=== PATIENT | male | born 1950 | race Caucasian/White ===

== ENCOUNTER → 2021-03-07 | Outpatient (CLI) | payer OTHER | END | disposition home or self-care (01) | LOC: OIH 12:41 | PROVIDERS: ATTEND Family Medicine | DX: Z13.6 Encounter for screening for cardiovascular disorders (principal); Z82.49 Family history of ischemic heart disease and other diseases of the circulatory system | CPT/HCPCS: 75571 ==

== ENCOUNTER → 2023-10-11 | Outpatient (CLI) | payer MEDICARE, OTHER ==
[~2023-10-11] MED LIST: GADOTERATE MEGLUMINE 10 MMOL/20 ML VIAL IV ONE
== END | disposition home or self-care (01) ==
LOC: RAH 15:09
PROVIDERS: ATTEND Family Medicine
DX: S83.242A Other tear of medial meniscus, current injury, left knee, initial encounter (principal); S83.282A Other tear of lateral meniscus, current injury, left knee, initial encounter; M71.22 Synovial cyst of popliteal space [Baker], left knee; M25.462 Effusion, left knee; R60.0 Localized edema; M25.562 Pain in left knee; X58.XXXA Exposure to other specified factors, initial encounter; Y93.89 Activity, other specified; Y92.89 Other specified places as the place of occurrence of the external cause; Y99.8 Other external cause status
CPT/HCPCS: 73723; A9575